=== PATIENT | female | born 1945 | race Caucasian/White ===

== ENCOUNTER 2020-11-23 15:58 | Inpatient (IN) | payer MEDICARE ==
[~2020-11-23] VITALS: Ht 157.5 cm; Wt 63.6 kg
[2020-11-23 17:46] LABS: BASOPHILS % (AUTO) 0.1 % (0-1); EOSINOPHILS % (AUTO) 0.1 % (0-6); HEMOGLOBIN 12.5 g/dl (12.0-16.0); LYMPHOCYTES # (AUTO) 0.9 X10'3 (1.1-4.8); LYMPHOCYTES % (AUTO) 8.2 % (21-51); MEAN CORPUSCULAR HEMOGLOBIN 31.2 PG (27.0-31.0); MEAN CORPUSCULAR HGB CONC 33.8 g/dL (33.0-36.5); MEAN CORPUSCULAR VOLUME 92.2 FL (78-98); MEAN PLATELET VOLUME 7.2 FL (7.4-10.4); MONOCYTES # (AUTO) 0.8 X10'3 (0-0.9); NEUTROPHILS # (AUTO) 9.3 X10'3 (1.8-7.7); NEUTROPHILS % (AUTO) 84.6 % (42-75); PLATELET COUNT 261 X10'3 (140-440); RED BLOOD COUNT 4.01 X10'6 (4.20-5.60); RED CELL DISTRIBUTION WIDTH 14.2 % (11.5-14.5)
[2020-11-23 17:57] LABS: ALANINE AMINOTRANSFERASE 36 U/L (12-78); ALBUMIN 3.1 G/DL (3.4-5.0); ALBUMIN/GLOBULIN RATIO 0.6 (1.1-1.5); ALKALINE PHOSPHATASE 96 IU/L (46-116); ANION GAP 10 (8-16); ASPARTATE AMINO TRANSFERASE 40 U/L (10-37); BILIRUBIN,TOTAL 0.8 MG/DL (0.1-1.0); BLOOD UREA NITROGEN 27 MG/DL (7-18); CALCIUM 9.9 MG/DL (8.5-10.1); CHLORIDE 92 MMOL/L (99-107); GLUCOSE 79 MG/DL (70-104); POTASSIUM 3.4 MMOL/L (3.5-5.1); SODIUM 133 MMOL/L (135-145); TOTAL CARBON DIOXIDE 31.4 MMOL/L (24-32); TOTAL PROTEIN 8.5 G/DL (6.4-8.2); eGFR 54 ML/MIN
[2020-11-23] MEDS ORDERED: dexamethasone sod phosphate 10mg/ml inj IV STA (18:10)
[2020-11-23] MEDS ORDERED: ipratropium/albuterol 3ml nebule NEB PRN (18:10)
[2020-11-23] MEDS ORDERED: benzonatate 100mg capsule PO ONE (18:35)
[2020-11-23] MEDS ORDERED: ondansetron/PF 4mg/2ml inj IV PRN (20:40)
[2020-11-23] MEDS ORDERED: magnesium hydroxide 30ml (MOM) UD suspension PO PRN (20:40)
[2020-11-23] MEDS ORDERED: HYDROcodone/acetaminophen 5mg/325mg tablet PO PRN (20:40)
[2020-11-23] MEDS ORDERED: morphine 2 MG/ML inj. syringe IV PRN ×2 (20:40)
[2020-11-23] MEDS ORDERED: mag hydrox/Alum hydrox/simeth 30ml oral suspension PO PRN (20:40)
[2020-11-23] MEDS ORDERED: acetaminophen 325mg tablet PO PRN ×2 (20:40)
[2020-11-23] MEDS ORDERED: GABA600T13 PO (23:02)
[2020-11-23] MEDS ORDERED: MAGN100T6 PO (23:02)
[2020-11-23] MEDS ORDERED: MELA3TAB11 PO (23:03)
[2020-11-23] MEDS ORDERED: Melatonin 3mg tablet PO ONE (23:10)
[2020-11-23] MEDS ORDERED: magnesium oxide 400mg tablet PO ONE (23:10)
[2020-11-23] MEDS ORDERED: gabapentin 300mg capsule PO ONE (23:10)
[2020-11-23] MEDS ORDERED: METO50TA16 PO (23:27)
[2020-11-23] MEDS ORDERED: LISI-600 PO (23:27)
[2020-11-23] MEDS ORDERED: CHLO25TA10 PO (23:27)
[2020-11-23] MEDS ORDERED: TRAM50TA2 PO (23:27)
[2020-11-23] MEDS ORDERED: ATOR20TA66 PO (23:27)
[2020-11-23] MEDS ORDERED: ALBU2.5V10 NEB (23:27)
[2020-11-23 23:30] VITALS: BP 160/72
--- NOTE | 2020-11-23 23:32 | NUR ---
Patient in room ED 2. I have received report from RAMIRO Silver and had the opportunity to ask questions and assume patient care. Pt transferring to rm [id number]
[2020-11-23] MEDS ORDERED: REVE175V IH (23:38)
[2020-11-23] MEDS ORDERED: ARFO15VI NEB (23:40)
[2020-11-24] MEDS ORDERED: magnesium oxide 400mg tablet PO ONE (00:05)
[2020-11-24 02:00] VITALS: BP 152/73
[2020-11-24] MEDS ORDERED: albuterol 2.5 MG/3 ML nebule NEB PRN (05:20)
[2020-11-24] MEDS ORDERED: traMADol 50MG tablet PO PRN (05:20)
[2020-11-24 06:00] VITALS: BP 155/89
--- NOTE | 2020-11-24 06:14 | NUR ---
Problems reprioritized. Patient report given, questions answered & plan of care reviewed with RAMIRO Goldsmith.
--- NOTE | 2020-11-24 06:35 | NUR ---
Patient in room PCU 3026. I have received report from RAMIRO Norman and had the opportunity to ask questions and assume patient care.
[2020-11-24 07:06] LABS: BASOPHILS % (AUTO) 0.1 % (0-1); EOSINOPHILS % (AUTO) 0 % (0-6); HEMATOCRIT 35.6 % (35.0-45.0); HEMOGLOBIN 12.1 g/dl (12.0-16.0); LYMPHOCYTES # (AUTO) 0.6 X10'3 (1.1-4.8); LYMPHOCYTES % (AUTO) 6.7 % (21-51); MEAN CORPUSCULAR HEMOGLOBIN 31.4 PG (27.0-31.0); MEAN CORPUSCULAR VOLUME 92.2 FL (78-98); MEAN PLATELET VOLUME 7.7 FL (7.4-10.4); MONOCYTES # (AUTO) 0.2 X10'3 (0-0.9); MONOCYTES % (AUTO) 1.7 % (2-12); NEUTROPHILS # (AUTO) 8.8 X10'3 (1.8-7.7); NEUTROPHILS % (AUTO) 91.5 % (42-75); PLATELET COUNT 282 X10'3 (140-440); RED BLOOD COUNT 3.86 X10'6 (4.20-5.60); RED CELL DISTRIBUTION WIDTH 13.9 % (11.5-14.5); WHITE BLOOD COUNT 9.6 X10'3 (4.5-11.0)
[2020-11-24 07:20] LABS: ALBUMIN 2.8 G/DL (3.4-5.0); ANION GAP 13 (8-16); BLOOD UREA NITROGEN 25 MG/DL (7-18); BUN/CREATININE RATIO 29.1 (6.6-38.0); CHLORIDE 93 MMOL/L (99-107); CREATININE 0.86 MG/DL (0.40-0.90); GLUCOSE 153 MG/DL (70-104); POTASSIUM 3.4 MMOL/L (3.5-5.1); SODIUM 134 MMOL/L (135-145); TOTAL CARBON DIOXIDE 27.9 MMOL/L (24-32); eGFR 65 ML/MIN
[2020-11-24] MEDS: chlorthalidone 25mg tablet PO SCH (07:40)
[2020-11-24] MEDS: furosemide 20 MG/2 ML vial IV SCH (07:40)
[2020-11-24] MEDS: methylPREDNISolone sod succ 125mg/2ml vial IV SCH ×2 (07:40→20:00)
[2020-11-24] MEDS: metoprolol tartrate 50mg tablet PO SCH ×2 (07:41→21:12)
[2020-11-24] MEDS: lisinopril 20mg tablet PO SCH (07:42)
[2020-11-24] MEDS: atorvastatin 20mg tablet PO SCH (07:42)
[2020-11-24] MEDS: gabapentin 300mg capsule PO SCH ×4 (07:42→21:11)
[2020-11-24] MEDS: enoxaparin 40mg/0.4ml syringe SUBCUT SCH (07:43)
[2020-11-24] MEDS: ARFORMOTEROL TARTRATE 15 MCG/2 ML IH SCH ×2 (08:00→20:00)
[2020-11-24] MEDS: REVEFENACIN 175 MCG/3 ML IH SCH (08:00)
[2020-11-24] MEDS ORDERED: potassium Cl 20 mEq SR tablet PO STA (10:55)
[2020-11-24 11:33] VITALS: BP 163/82
[2020-11-24 15:00] VITALS: BP 164/85
--- NOTE | 2020-11-24 18:07 | NUR ---
Problems reprioritized. Patient report given, questions answered & plan of care reviewed with RAMIRO Cutler.
[2020-11-24 19:00] VITALS: BP 185/90
[2020-11-24] MEDS ORDERED: Melatonin 3mg tablet PO SCH (21:00)
[2020-11-24] MEDS ORDERED: magnesium oxide 400mg tablet PO SCH (21:00)
[2020-11-24 23:00] VITALS: BP 141/75
[2020-11-25 03:00] VITALS: BP 158/75
--- NOTE | 2020-11-25 06:43 | NUR ---
Patient in room PCU 3026. I have received report from ESTHER RUBIO and had the opportunity to ask questions and assume patient care.
[2020-11-25 06:54] VITALS: BP 160/78
[2020-11-25] MEDS: REVEFENACIN 175 MCG/3 ML IH SCH (08:00)
[2020-11-25] MEDS: ARFORMOTEROL TARTRATE 15 MCG/2 ML IH SCH (08:00)
[2020-11-25 08:06] LABS: EOSINOPHILS % (AUTO) 0 % (0-6); LYMPHOCYTES # (AUTO) 0.9 X10'3 (1.1-4.8); MEAN CORPUSCULAR HGB CONC 33.5 g/dL (33.0-36.5)
[2020-11-25 08:08] LABS: BASOPHILS % (AUTO) 0.1 % (0-1); HEMATOCRIT 35.2 % (35.0-45.0); HEMOGLOBIN 11.8 g/dl (12.0-16.0); LYMPHOCYTES % (AUTO) 6.6 % (21-51); MEAN CORPUSCULAR HEMOGLOBIN 30.7 PG (27.0-31.0); MEAN CORPUSCULAR VOLUME 91.7 FL (78-98); MEAN PLATELET VOLUME 7.5 FL (7.4-10.4); MONOCYTES # (AUTO) 0.8 X10'3 (0-0.9); MONOCYTES % (AUTO) 5.9 % (2-12); NEUTROPHILS # (AUTO) 11.6 X10'3 (1.8-7.7); NEUTROPHILS % (AUTO) 87.4 % (42-75); RED BLOOD COUNT 3.84 X10'6 (4.20-5.60); RED CELL DISTRIBUTION WIDTH 14.2 % (11.5-14.5); WHITE BLOOD COUNT 13.3 X10'3 (4.5-11.0)
[2020-11-25 08:30] LABS: ALBUMIN 2.5 G/DL (3.4-5.0); ANION GAP 6 (8-16); BLOOD UREA NITROGEN 25 MG/DL (7-18); BUN/CREATININE RATIO 36.2 (6.6-38.0); CALCIUM 9.3 MG/DL (8.5-10.1); CHLORIDE 96 MMOL/L (99-107); CREATININE 0.69 MG/DL (0.40-0.90); GLUCOSE 136 MG/DL (70-104); POTASSIUM 3.9 MMOL/L (3.5-5.1); SODIUM 135 MMOL/L (135-145); TOTAL CARBON DIOXIDE 32.7 MMOL/L (24-32); eGFR 83 ML/MIN
[2020-11-25 08:34] LABS: PLATELET COUNT 299 X10'3 (140-440)
[2020-11-25] MEDS: metoprolol tartrate 50mg tablet PO SCH (08:41)
[2020-11-25] MEDS: atorvastatin 20mg tablet PO SCH (08:41)
[2020-11-25] MEDS: chlorthalidone 25mg tablet PO SCH (08:41)
[2020-11-25 08:42] VITALS: BP_SYST 160
[2020-11-25] MEDS: lisinopril 20mg tablet PO SCH (08:42)
[2020-11-25] MEDS: gabapentin 300mg capsule PO SCH (08:42)
[2020-11-25] MEDS: furosemide 20 MG/2 ML vial IV SCH (08:42)
[2020-11-25] MEDS: methylPREDNISolone sod succ 125mg/2ml vial IV SCH (08:42)
[2020-11-25] MEDS: enoxaparin 40mg/0.4ml syringe SUBCUT SCH (08:44)
--- NOTE | 2020-11-25 08:51 | NUR ---
PATIENT IS QUESTIONING METOPROLOL. SHE THINKS THE PILL IS THE WRONG COLOR. I PULLED A SECONF PILL FROM THE [employer] TO SHOW HER IT IS CORRECT. SHE IS SATISFIED AND COMFORTABLE WILL TAKING HER MEDS.
[2020-11-25] MEDS ORDERED: LEVO500T89 PO (09:42)
[2020-11-25] MEDS ORDERED: PRED10TA23 PO (09:42)
[2020-11-25] MEDS ORDERED: BENZ-16 PO (09:58)
--- NOTE | 2020-11-25 10:51 | NUR ---
CALLED PATIENT'S MEDS INTO THE [facility] IN [place]. DC'D PATIENT'S IV AND SHE IS DISHCARGED AND WAITING FOR A RIDE
--- NOTE | 2020-11-27 10:44 | NUR ---
CASE MANAGEMENT DISCHARGE FOLLOW UP: Spoke with pt via telephone. Pt reports that she is "doing better" and "still a little weak," but that she is improving. Verbalizes understanding of s/sx requiring further evaluation/emergent assistance. Pt states taking medications as ordered by MD, states no questions. Pt verbalizes compliance with MD discharge instructions. Pt verbalizes understanding of the importance in keeping follow-up appointments, as appointment with PCP tomorrow, 11/28-. Pt states no further questions/concerns at this time.
== END 2020-11-25 11:39 | disposition home or self-care (01) | DRG 193 ==
LOC: ER 15:58 → ED HOLD 20:39 → PCU 3S 23:50
PROVIDERS: ADMIT Internal Medicine; ATTEND Internal Medicine
DX: J18.9 Pneumonia, unspecified organism (principal); J96.21 Acute and chronic respiratory failure with hypoxia; J44.1 Chronic obstructive pulmonary disease with (acute) exacerbation; J44.0 Chronic obstructive pulmonary disease with (acute) lower respiratory infection; E78.5 Hyperlipidemia, unspecified; G62.9 Polyneuropathy, unspecified; M54.9 Dorsalgia, unspecified; G89.29 Other chronic pain; I10 Essential (primary) hypertension; Z20.822 Contact with and (suspected) exposure to COVID-19; Z80.3 Family history of malignant neoplasm of breast; Z85.118 Personal history of other malignant neoplasm of bronchus and lung; Z85.3 Personal history of malignant neoplasm of breast; Z87.891 Personal history of nicotine dependence; Z90.710 Acquired absence of both cervix and uterus; Z88.2 Allergy status to sulfonamides; Z79.899 Other long term (current) drug therapy
CPT/HCPCS: 36415; 71045; 80048; 80053; 83880; 84145; 84484; 85025; 87081; 87502; 87503; 87635; 93005; 94640; 94760; 96374; 99285; C9803; G0378; J1100; J1650; J1940; J2930